=== PATIENT | female | born 1990 | race Caucasian/White ===

== ENCOUNTER 2021-01-20 07:20 | Inpatient (IN) | payer OTHER ==
[~2021-01-20] VITALS: Ht 149.9 cm; Wt 59.0 kg
[2021-01-20] MEDS ORDERED: PRENATAL TABLE1 EAC1 PO (08:21)
[2021-01-20] MEDS ORDERED: ZYRTEC10 M3 PO (08:22)
== END 2021-01-22 11:57 | disposition home or self-care (01) | DRG 807 ==
LOC: LDR 07:20 → SURG-SUITE 18:39
PROVIDERS: ADMIT Specialist; ATTEND Specialist
PROC: 10E0XZZ Delivery of Products of Conception, External Approach (ICD-10-PCS; principal; 2021-01-20)
PROC: 10907ZC Drainage of Amniotic Fluid, Therapeutic from Products of Conception, Via Natural or Artificial Opening (ICD-10-PCS; 2021-01-20)
PROC: 3E0P7VZ Introduction of Hormone into Female Reproductive, Via Natural or Artificial Opening (ICD-10-PCS; 2021-01-20)
PROC: 4A1HXFZ Monitoring of Products of Conception, Cardiac Rhythm, External Approach (ICD-10-PCS; 2021-01-20)
DX: O80 Encounter for full-term uncomplicated delivery (principal); Z37.0 Single live birth; Z3A.39 39 weeks gestation of pregnancy